=== PATIENT | male | born 1975 | race Caucasian/White ===

== ENCOUNTER → 2019-05-23 17:06 | Outpatient (CLI) | payer BC, SELFPAY ==
[2019-05-23 17:18] LABS: Basophils % 0.4 % (0.1-2.0); Eosinophils # 0.1 K/mm3 (0.0-0.4); Eosinophils % 1.9 % (0.1-12.0); Hematocrit 44.4 % (42.0-52.0); Hemoglobin 14.7 g/dL (14.1-18.0); Lymphocytes # 1.9 K/mm3 (0.7-4.5); Lymphocytes % 31.7 % (10-50); Mean Corpuscular HGB Conc 33.1 g/dL (31.8-35.4); Mean Corpuscular Hemoglobin 30.2 pg (27.0-31.2); Mean Corpuscular Volume 91.2 fl (80-94); Monocytes # 0.3 K/mm3 (0.1-1.0); Monocytes % 5.8 % (1.7-9.3); Neutrophils # 3.6 K/mm3 (1.8-7.8); Neutrophils % 60.1 % (37.0-80.0); Platelet Count 197 K/mm3 (142-424); Red Blood Count 4.87 M/mm3 (4.60-6.20); Red Cell Distribution Width 12.7 % (11.5-17.5)
[2019-05-23 17:59] LABS: Alanine Aminotransferase 28 U/L (12-78); Albumin/Globulin Ratio 1.4 (1.1-1.8); Alkaline Phosphatase 96 U/L (46-116); Anion Gap 11.2 mEq/L (5-15); Aspartate Amino Transferase 21 U/L (15-37); Bilirubin,Total 1.6 mg/dL (0.2-1.0); Blood Urea Nitrogen 19 mg/dL (7-18); Calcium 8.9 mg/dL (8.5-10.1); Carbon Dioxide 29 mmol/L (21.0-32.0); Chloride 105 mmol/L (98-107); Chol/HDL Ratio 4.3 (1-3.5); Cholesterol 133 mg/dL (140-200); Creatinine,Serum 1.12 mg/dL (0.70-1.30); Estimated Glomerular Filt Rate 71 ml/min (>60); GFR (African American) 85 ML/MIN (>60); Globulin 2.9 gm/dl (1.3-3.2); Glucose 91 mg/dL (74-106); HDL Cholesterol 31 mg/dL (27-67); LDL Cholesterol 71 mg/dL (0-130); Potassium 4.2 mmoL/L (3.5-5.1); Sodium 141 mmol/L (136-145); Total Protein,Serum 6.9 gm/dL (6.4-8.2); Triglycerides 155 mg/dL (30-200); VLDL Cholesterol 31 mg/dL (0-40)
== END ==
PROVIDERS: Visit Provider Internal Medicine Adolescent Medicine
DX: Z00.00 Encounter for general adult medical examination without abnormal findings (principal)
CPT/HCPCS: 36415; 80053; 80061; 85025

== ENCOUNTER → 2020-05-24 16:42 | Outpatient (CLI) | payer BC, SELFPAY ==
[2020-05-24 17:12] LABS: Basophils # 0.1 K/mm3 (0-0.2); Basophils % 0.8 % (0.1-2.0); Eosinophils # 0.1 K/mm3 (0.0-0.4); Eosinophils % 1.4 % (0.1-12.0); Hematocrit 43.6 % (42.0-52.0); Hemoglobin 14.8 g/dL (14.1-18.0); Lymphocytes # 2.3 K/mm3 (0.7-4.5); Lymphocytes % 27.8 % (10-50); Mean Corpuscular HGB Conc 34.1 g/dL (31.8-35.4); Mean Corpuscular Hemoglobin 30.9 pg (27.0-31.2); Mean Corpuscular Volume 90.6 fl (80-94); Mean Platelet Volume 8.1 fl (7.4-10.4); Monocytes # 0.5 K/mm3 (0.1-1.0); Neutrophils # 5.3 K/mm3 (1.8-7.8); Neutrophils % 64.1 % (37.0-80.0); Platelet Count 188 K/mm3 (142-424); Red Blood Count 4.81 M/mm3 (4.60-6.20); Red Cell Distribution Width 12.9 % (11.5-17.5); White Blood Count 8.2 K/mm3 (4.8-10.8)
[2020-05-24 20:28] LABS: Chloride 102 mmol/L (98-107); Sodium 140 mmol/L (136-145)
[2020-05-24 20:29] LABS: Potassium 4.7 mmoL/L (3.5-5.1)
[2020-05-24 20:31] LABS: Alanine Aminotransferase 41 U/L (12-78); Albumin Level 4.4 g/dl (3.5-5.0); Albumin/Globulin Ratio 1.8 (1.1-1.8); Alkaline Phosphatase 94 U/L (38-126); Anion Gap 14.7 mEq/L (5-15); Aspartate Amino Transferase 34 U/L (17-59); Bilirubin,Total 1.4 mg/dl (0.2-1.3); Blood Urea Nitrogen 25 mg/dl (9-20); Carbon Dioxide 28 mmol/L (22.0-30.0); Estimated Glomerular Filt Rate 47 ml/min (>60); GFR (African American) 56 ML/MIN (>60); Globulin 2.4 g/dL (1.3-3.2); Total Protein,Serum 6.8 g/dl (6.3-8.2)
[2020-05-24 20:32] LABS: Calcium 9.1 mg/dl (8.4-10.2); Cholesterol 140 mg/dl (140-200); Glucose 94 mg/dl (74-100); HDL Cholesterol 35 mg/dl (40-60); Triglycerides 163 mg/dl (30-150); VLDL Cholesterol 33 mg/dL (0-40)
[2020-05-24 20:43] LABS: Direct LDL Cholesterol 88.52 mg/dL (100-129)
== END ==
PROVIDERS: Visit Provider Internal Medicine Adolescent Medicine
DX: E78.5 Hyperlipidemia, unspecified (principal); K21.9 Gastro-esophageal reflux disease without esophagitis
CPT/HCPCS: 36415; 80053; 80061; 85025

== ENCOUNTER → 2020-07-07 16:30 | Outpatient (CLI) | payer BC, SELFPAY ==
[2020-07-07 17:27] LABS: Blood Urea Nitrogen 17 mg/dl (9-20); Carbon Dioxide 29 mmol/L (22.0-30.0); Chloride 103 mmol/L (98-107); Estimated Glomerular Filt Rate 59 ml/min (>60); GFR (African American) 72 ML/MIN (>60); Glucose 95 mg/dl (74-100); Sodium 141 mmol/L (136-145)
== END ==
PROVIDERS: Visit Provider Internal Medicine Adolescent Medicine
DX: R79.89 Other specified abnormal findings of blood chemistry (principal)
CPT/HCPCS: 36415; 80048

== ENCOUNTER → 2020-12-10 07:45 | Outpatient (CLI) | payer BC, SELFPAY ==
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
--- NOTE | 2020-12-10 08:25 | XR_ITS ---
PROCEDURE: XR KNEE LT 3V CLINICAL INDICATION: LT LEG EDEMA,LT KNEE PAIN COMPARISON: No exams were available for comparison FINDINGS: No fracture or dislocation. No lytic or blastic change. There is normal mineralization. Minimal osteoarthritic change medial compartment and patellofemoral joint. Other findings:Minimal spurring along the posterior patella IMPRESSION: Minimal osteoarthritic change Dictated by: Gerald Valderrama MD 12/10/2020 08:59 Gerald Valderrama MD in [place] 12/10/2020 08:59
== END ==
PROVIDERS: PCP Internal Medicine Adolescent Medicine; Visit Provider Internal Medicine Adolescent Medicine
DX: M25.562 Pain in left knee (principal); R60.0 Localized edema; W64.XXXA Exposure to other animate mechanical forces, initial encounter
CPT/HCPCS: 73562; 93971

== ENCOUNTER → 2021-05-25 16:33 | Outpatient (CLI) | payer BC, SELFPAY ==
[2021-05-25 17:13] LABS: Chloride 101 mmol/L (98-107)
[2021-05-25 17:14] LABS: Potassium 4.2 mmoL/L (3.5-5.1); Sodium 139 mmol/L (136-145)
[2021-05-25 17:16] LABS: Alanine Aminotransferase 25 U/L (12-78); Alkaline Phosphatase 114 U/L (38-126); Aspartate Amino Transferase 20 U/L (17-59); Bilirubin,Total 0.9 mg/dl (0.2-1.3); Blood Urea Nitrogen 16 mg/dl (9-20); Estimated Glomerular Filt Rate 80 ml/min (>60); GFR (African American) 97 ML/MIN (>60)
[2021-05-25 17:17] LABS: Albumin/Globulin Ratio 1.7 (1.1-1.8); Anion Gap 13.2 mEq/L (5-15); Calcium 8.6 mg/dl (8.4-10.2); Carbon Dioxide 29 mmol/L (22.0-30.0); Cholesterol 145 mg/dl (140-200); Globulin 2.4 g/dL (1.3-3.2); Glucose 103 mg/dl (74-100); HDL Cholesterol 36 mg/dl (40-60); Total Protein,Serum 6.4 g/dl (6.3-8.2); Triglycerides 154 mg/dl (30-150); VLDL Cholesterol 31 mg/dL (0-40)
[2021-05-25 17:28] LABS: Direct LDL Cholesterol 91.36 mg/dL (100-129)
== END ==
PROVIDERS: Visit Provider Internal Medicine Adolescent Medicine
DX: E78.5 Hyperlipidemia, unspecified (principal)
CPT/HCPCS: 36415; 80053; 80061

== ENCOUNTER → 2023-06-18 14:59 | Outpatient (CLI) | payer BC, SELFPAY | PROVIDERS: PCP Internal Medicine Adolescent Medicine; Visit Provider Nurse Practitioner Family | DX: R06.81 Apnea, not elsewhere classified (principal) | CPT/HCPCS: G0399 ==

== ENCOUNTER 2024-06-15 09:31 | Emergency (ER) | payer BC, SELFPAY ==
[2024-06-15 09:35] VITALS: BP 145/102; PULSE 68; RESP 20; TEMP 37.2; O2SAT 98; BMI 29.8
[2024-06-15] MEDS: OXYMETAZOLINE NASAL SPRAY 0.05% 15ML NS (09:45)
--- NOTE | 2024-06-15 09:48 | ED_ITS ---
Discharge Plan Disposition Patient Disposition: Home, Self-Care Condition: Good Prescriptions Prescriptions: No Action cetirizine 10 mg tablet 10 mg PO DAILY Patient Comments: TAKE 1 TABLET BY MOUTH ONCE DAILY omeprazole 20 mg capsule,delayed release(DR/EC) 20 mg PO DAILY Patient Comments: TAKE 1 CAPSULE BY MOUTH ONCE DAILY FOR 90 DAYS losartan 100 mg tablet 100 mg PO DAILY Patient Comments: TAKE 1 TABLET BY MOUTH ONCE DAILY rosuvastatin 5 mg tablet 5 mg PO HS Patient Comments: TAKE 1 TABLET BY MOUTH ONCE DAILY Referrals Follow up/Referrals: Denise Perry APRN [Nurse Practitioner] - See instructions Fan Harper MD [Primary Care Provider] - See instructions Activity Restrictions/Add. Instructions Additional Instructions/Restrictions: (1) Avoid digital manipulation (picking, rubbing, etc.) of the nose. (2) Avoid excessive nose-blowing. (3) Maintaining a moist nasal environment is important and can be accomplished by cool mist humidifier (4) Saline nasal spray may be used intermittently throughout the day to maintain nasal moisture. (5) A humidifier at night will help prevent drying and crusting in the nose, especially during the colder months when heaters are on and drying the air. (6) Avoid heavy straining or weight-bearing exercise after a nosebleed. (7) Adults with high blood pressure should confirm adequate blood pressure control if frequent nosebleeds persist follow up with your Family Doctor tomorrow Sit up and tilt your head slightly forward. This keeps blood from going down your throat.use afrin nasal spray as you was instructed in the the [facility] today Straight to ER if the bleeding starts back and you are unable to get it stopped Afrin nasal spray can be used to constrict the nasal blood vessels. [place] two sprays into the nose when it starts to bleed and pinch the soft part of the nose closed. 2. Hold the pinch for 15 minutes. Clinical Impressions Clinical Impression: Epistaxis Stand Alone Forms Stand Alone Forms: Work/School Release Instructions Patient Instructions: Nosebleeds (Alternative Therapy), Nosebleed, DI for Nosebleed Print Language Print Language: Indonesian Discharge ED Provider: Mayr Ann [place] [facility] [place] General Stated complaint: nose bleed Mode of Arrival: Ambulatory Source of Information: Patient Limitations: No Limitations Time Seen by Provider: 06/15/24 09:48 Description of Symptoms (Recalled from Triage Doc. by RN): PATIENT C/O NOSE BLEED THAT STARTED THIS MORNING HEENT Symptoms (Recalled from RN notes): Yes Resp Symptoms (Recalled from RN notes): No Skin Symptoms (Recalled from RN notes): No MS Symptoms (Recalled from RN notes): No Functional Status (Recalled from RN notes): WNL History of Present Illness Provider Complaint: Patient states that yesterday he had a nose bleed but it stopped easily and this morning he woke up and his nose started bleeding and he was having a hard time getting it to stop so he came in States PCP recently changed his BP medication and he does use a CPAP every night States he has had nose bleeds in the past Related Data Home Medications ?Medication ?Instructions ?Recorded ?Confirmed cetirizine 10 mg tablet 10 mg PO DAILY 06/15/24 06/15/24 losartan 100 mg tablet 100 mg PO DAILY 06/15/24 06/15/24 omeprazole 20 mg capsule,delayed 20 mg PO DAILY 06/15/24 06/15/24 release rosuvastatin 5 mg tablet 5 mg PO HS 06/15/24 06/15/24 Allergies Allergy/AdvReac Type Severity Reaction Status Date / Time No Known Allergies Allergy Verified 11/18/18 06:37 Worker's Comp Is this a Worker's Comp case?: No [facility] Disclaimer: The information contained in this section may have been updated after the patient was seen, as this information can be updated by other users. Medical History (Updated 06/15/24 @ 10:03 by Mary Ann Eden APRN) Kidney stone Hyperlipidemia Hypertension Social History Smoking Status: Never smoker alcohol intake: never substance use type: denies use current occupational status: employed Travel in the last 8 weeks: None caffeine: No ROS Obtained: Yes All systems reviewed & no additional complaints except as documented and Yes Systems reviewed as appropriate & no additional complaints except as documented Constitutional Constitutional: Reports system reviewed and no additional complaints, except as documented and Reports as per HPI ENT Ears, Nose, Mouth, and Throat: Reports system reviewed and no additional complaints, except as documented, Reports as per HPI and Reports epistaxis Cardiovascular Cardiovascular: Reports system reviewed and no additional complaints, except as documented and Reports as per HPI Respiratory Respiratory: Reports system reviewed and no additional complaints, except as documented and Reports as per HPI Gastrointestinal Gastrointestingal: Reports system reviewed and no additional complaints, except as documented and as per HPI Musculoskeletal Musculoskeletal: Reports system reviewed and no additional complaints, except as documented and Reports as per HPI Physical Exam General General appearance: alert and in no apparent distress ENT ENT exam: Present mucous membranes moist Expanded ENT Exam Nasal speculum exam: Right: epistaxis (was only dripping small amount by time of arrival) Respiratory Respiratory exam: Present normal lung sounds bilaterally; Absent respiratory distress or wheezes Cardiovascular Cardiovascular exam: Present regular rate, normal rhythm and normal heart sounds Neurological Exam Neurological exam: Present alert, oriented X3 and normal gait Medical Decision Making Medical Records Screening: Per USPSTF and CDC recommendations, given the prevalence of disease in our [facility], it is our hospital?s policy to screen for HIV and viral Hepatitis for all patients aged 18 and over and those with ongoing risk factors. Lawson Inquiry Pt receiving controlled substance: No Lawson was queried for this patient: No Vital Signs: 06/15/24 09:35 Temperature 98.9 F Temperature Source Oral Pulse Rate [Left Brachial] 68 Respiratory Rate 20 Blood Pressure [Left Arm] 145/102 H Blood Pressure Mean [Left Arm] 116 Blood Pressure Source [Left Arm] Automatic Cuff Blood Pressure Position [Left Arm] Sitting 02 Sat by Pulse Oximetry 98 Oxygen Delivery Method Room Air Orders (Tests/Meds): ED MEDICATIONS Generic Name Dose Route Start Last Admin Trade Name Ingris PRN Reason Stop Dose Admin Oxymetazoline HCl 0.5 ml 06/15/24 09:44 06/15/24 09:45 Oxymetazoline Nasal [place] 0.05% 15ml NS 06/15/24 09:45 0.5 ml ONCE ONE Administration Medical Decision Narrative: Nose bleed was almost stopped at time of arrival, patient was given a spray of afrin in right nostril will monitor for short period of time to see if bleeding starts back No active bleeding at this time, patient was educated to use 2 sprays of afrin and hold bridge of nose for 15 min, do not blow nose hard as this may disclodge the clot and if he is unable to control bleeding give strict return precautions to the ED recheck of BP 142/98
[2024-06-15 10:21] VITALS: BP 145/102; PULSE 68; RESP 20; TEMP 37.2; O2SAT 98
== END 2024-06-15 10:29 | disposition home or self-care (01) ==
PROVIDERS: Emergency Provider Nurse Practitioner; PCP Internal Medicine Adolescent Medicine
DX: R04.0 Epistaxis (principal)
CPT/HCPCS: 99213; G0381

== ENCOUNTER 2024-08-13 08:34 | Outpatient (CLI) | payer BC, SELFPAY ==
--- NOTE | 2024-08-13 08:40 | CA_ITS ---
FINAL REPORT TECHNIQUE: Grayscale, color Doppler and duplex Doppler ultrasound of the kidneys, aorta and renal arteries was performed. Multiple velocities were measured. CLINICAL HISTORY: HTN,HX KIDNEY STONES FINDINGS: Aorta velocity: 109 cm/sec Right kidney: 11.2 cm. No evidence of hydronephrosis or mass. Right intrarenal RI: 0.52 Right renal artery velocity: 157 cm/sec. The ratio is 1.4. Left Kidney: 12.0 cm. No evidence of hydronephrosis or mass. Left intrarenal RI: 0.49 Left renal artery velocity: 141 cm/sec. The ratio is 1.3. IMPRESSION: No evidence of significant renal artery stenosis. CT angiogram or postcontrast MR angiogram would be more sensitive for evaluation of possible renal artery stenosis. Reviewed, Interpreted and Dictated by Grant Plata III, MD Transcribed by Ale Naylor Authenticated and [facility]
== END 2024-08-13 23:59 | disposition home or self-care (01) ==
PROVIDERS: PCP Internal Medicine Adolescent Medicine; Visit Provider Internal Medicine Adolescent Medicine
DX: I10 Essential (primary) hypertension (principal)
CPT/HCPCS: 93976

== ENCOUNTER 2025-06-05 07:42 | Outpatient (CLI) | payer BC, SELFPAY ==
--- NOTE | 2025-06-05 | CA_ITS ---
APPROVED REPORT EXAM: Comprehensive 2D, Doppler, and color-flow Echocardiogram Manager Labor Relations: Melanie King CRT Ht: 5 ft 11 in Wt: 230lbs BSA: 2.24 BP: 132/80 mmHg Indications: Shortness of Breath, Peripheral Edema, Hyperlipidemia, Hypertension/HDD 2D Dimensions LA Volume 56.90 mL LA Volume Index 24.80 mL/m2 (M/F) 16-34 M-Mode Dimensions RVDd 3.18 cm (0.9-2.6) LA Diam 4.60 cm (1.9-4.0) LVDd 6.44 cm (3.5-5.7) LVDs 4.66 cm (3.5-5.7) IVSd 1.55 cm (0.6-1.1) PWd 1.33 cm (0.6-1.1) EF (Teich) 52.60% FS 27.60% EDV (Teich) 211.50 mL TAPSE 1.93 (<1.7) ESV (Teich) 100.30 mL LV Diastology E Decel Time 180 (160-240 msec) E/A Ratio 0.77 MED A' 11.70 cm/s LAT A' 7.30 cm/s Aortic Valve AO Peak GR. 7.80 mmHg Mitral Valve MV E Max Severo. 47.0 (40-130 cm/s) MV A Velocity 61.0 (40-130 cm/s) E/A Ratio 0.77 MV PHT 53.0 ms Pulmonary Valve PV Peak Velocity 93.0 (50-150 cm/s) Tricuspid Valve TR P. Velocity 174.00 cm/s RAP Estimate 10.00 mmHg RVSP 22.00 mmHg Left Ventricle The left ventricle is normal size. Left ventricular systolic function is normal. The left ventricular ejection fraction is within the normal range. There is normal left ventricular wall thickness. There is normal LV segmental wall motion. The left ventricular diastolic function is normal. LVEF is 55%. Right Ventricle The right ventricle is normal size. The right ventricular systolic function is normal. Atria The left atrium size is normal. The right atrium size is normal. There is no color Doppler evidence of interatrial shunt. Aortic Valve The aortic valve is mildly thickened. There is no hemodynamically significant aortic valvular stenosis. No aortic regurgitation is present. Mitral Valve The mitral valve is normal in structure. No evidence of mitral valve stenosis. Trace mitral regurgitation is present. Tricuspid Valve The tricuspid valve leaflets are thin and pliable. Trace tricuspid regurgitation. There is insufficient TR jet to estimate RVSP. Pulmonic Valve The pulmonary valve is grossly normal in structure. Trace pulmonic valve regurgitation is present. Great Vessels The aortic root is normal in size. IVC is normal in size and collapses >50% with inspiration. Pericardium There is no pericardial effusion. Other Information Study Quality: Fair Conclusion Normal biventricular systolic function. No significant valvular stenosis or regurgitation. Electronically signed by : Linda Roach MD 06/06/2025 23:42:46
== END 2025-06-05 23:59 | disposition home or self-care (01) ==
LOC: RT 07:42
PROVIDERS: PCP Internal Medicine Adolescent Medicine; Visit Provider Internal Medicine Adolescent Medicine
DX: E78.5 Hyperlipidemia, unspecified (principal); R60.0 Localized edema; R06.09 Other forms of dyspnea; R06.02 Shortness of breath; I10 Essential (primary) hypertension
CPT/HCPCS: 93306

== ENCOUNTER 2025-07-29 06:18 | Outpatient (CLI) | payer BC, SELFPAY ==
--- NOTE | 2025-07-29 | CA_ITS ---
APPROVED REPORT Exam: Pharmacologic Technologist: Jazzy Joyce Stress Nurse: Farideh COLEMAN, RN Ht: 6 ft 0 in Wt: 238 lbs BSA: 2.29 m2 HR: 75 bpm BP: 130/67 mmHg Indications: Shortness of breath Stress Test Details Test: Lexiscan HR Resting HR: 75 bpm Max Heart Rate (APMHR): 168.921477 bpm Max HR Achieved: 89 bpm Target HR (85% APMHR): 142.522027 bpm % of APMHR: 52.98 Recovery HR: 77 bpm BP Resting BP: 130.0/67.0 mmHg Max BP: 116.0/70.0 mmHg Recovery BP: 104.0/65.0 mmHg ECG Resting ECG: Sinus rhythm Stress ECG Conclusion Test stopped at 7:34 minutes due to leg fatigue, unable to reach target heart rate. Switched to Lexiscan Lungs clear to auscultation prior to test start. Electronically signed by : Linda Roach MD 08/02/2025 22:26:14
--- NOTE | 2025-07-29 06:30 | NM_ITS ---
APPROVED REPORT Exam: Nuclear Stress Test Indication: SOA Patient Location: Outpatient Stress Tech: Jazzy Joyce DC Tech:Nuris FrostringtonSANJUANITA RT(R)(N) Ht: 6 ft 0 in Wt: 229 lbs HR: 73 bpm BP: 130/67 mmHg BSA: 2.26 m2 TID: 1.04 History: Dyspnea Procedure: Patient received 0.4 mg of intravenous Lexiscan, resting heart rate 73 bpm, resting blood pressure 130/67 mmHg, with Lexiscan maximum heart rate achieved was 86 bpm which is 85 % of the maximum predicted heart rate and blood pressure was 116/70 mmHg. With Lexiscan, patient denied any complaint of chest pain. Cardiac Stress and Resting SPECT Images: Cardiac Stress and Resting SPECT images were obtained using technetium 99m Myoview 30.4 mCi stress and 10.51 mCi at rest. Resting and stress imaging in supine and prone positions demonstrate a small sized, moderate, reversible perfusion defect in the basal lateral LV wall. Gated imaging demonstrates normal global LV systolic function. LVEF is calculated at 61%. Conclusion: Small sized, moderate, reversible perfusion defect in the basal lateral LV wall. Findings are suggestive of reversible ischemia. Gated imaging demonstrates normal global LV systolic function. LVEF is calculated at 61%. Electronically signed by : Linda Roach MD 08/02/2025 22:18:55
[2025-07-29 08:15] VITALS: BP 130/67; PULSE 75; RESP 14
--- NOTE | 2025-07-29 09:00 | CA_ITS ---
FINAL REPORT CLINICAL HISTORY: EDEMA BLE'S FINDINGS: DUPLEX VENOUS SONOGRAPHY OF THE BILATERAL LOWER EXTREMITIES Multiple transverse and longitudinal scans were performed of the femoropopliteal deep venous systems, with augmentation and compression maneuvers. FINDINGS: Normal phasic flow was noted in the visualized deep venous systems. No intraluminal increased echogenicity is noted to suggest thrombus. There is normal compression and augmentation of the venous structures. No abnormal venous collaterals are seen. IMPRESSION: No evidence of deep venous thrombosis of the bilateral lower extremities. Reviewed, Interpreted and Dictated by Ewa Chicas MD Transcribed by Chari Acosta Authenticated and [facility]
[2025-07-29] MEDS: SODIUM CHLORIDE 0.9% 10ML SYR (RAD ONLY) 10 ML IV ×2 (09:22)
[2025-07-29] MEDS: ISOTOPE MYOVIEW (PER STUDY) 1 DOSE IV (09:22)
== END 2025-07-29 23:59 | disposition home or self-care (01) ==
PROVIDERS: PCP Internal Medicine Adolescent Medicine; Visit Provider Nurse Practitioner Family
DX: E78.5 Hyperlipidemia, unspecified (principal); M79.89 Other specified soft tissue disorders; I10 Essential (primary) hypertension; R20.0 Anesthesia of skin; R60.0 Localized edema; R06.02 Shortness of breath; R94.39 Abnormal result of other cardiovascular function study; Z82.49 Family history of ischemic heart disease and other diseases of the circulatory system
CPT/HCPCS: 78452; 93017; 93018; 93970; A9502; J2785